=== PATIENT | female | born 1965 | race Caucasian/White ===

== ENCOUNTER 2018-10-01 00:45 | Outpatient (CLI) | payer MEDICAID, SELFPAY ==
--- NOTE | 2018-10-01 17:09 | DI.RAD_ITS ---
SYMPTOMS/DIAGNOSIS: LUMBAR RADICULOPATHY, FELL DOWN STAIRS 1 YEAR AGO, S/P SURGERY LUMBAR SPINE: AP, lateral and bilateral oblique views were obtained. Flexion and extension lateral views were also performed. There are five lumbar-type vertebral bodies. There is normal alignment. No spondylolysis or spondylolisthesis is seen. The disc heights appear well maintained. There are small endplate osteophytes seen at L3-4 and L4-L5. Mild degenerative changes at the facet joints are present at L4-5 and L5-S1. No acute fractures are present. No subluxation is seen with flexion or extension. There are surgical clips in the right upper quadrant of the abdomen. Vascular calcifications are seen of the abdominal aorta. There is a calcification seen to the left of L1, which may reflect a renal stone. IMPRESSION: Mild degenerative changes in the lumbar spine.
== END 2018-10-01 01:05 ==
PROVIDERS: PCP Family Medicine; Visit Provider Nurse Practitioner
DX: M54.16 Radiculopathy, lumbar region (principal); M54.5 Low back pain; M47.27 Other spondylosis with radiculopathy, lumbosacral region
CPT/HCPCS: 72110

== ENCOUNTER 2018-12-03 01:24 | Outpatient (CLI) | payer MEDICAID, SELFPAY ==
--- NOTE | 2018-12-03 08:55 | DI.RAD_ITS ---
SYMPTOM/DIAGNOSIS: RADICULOPATHY OF LUMBAR REGION, M54.16 LUMBAR SPINE: AP, lateral and bilateral oblique views of the lumbar spine were obtained. Comparison is made with 10/01/18. There are five lumbar type vertebral bodies. No spondylolysis or spondylolisthesis is seen. No acute fractures or subluxations are seen. Small endplate osteophytes are present at multiple levels of the lumbar spine. Vascular calcifications are seen. Surgical clips are present in the right upper quadrant of the abdomen. IMPRESSION: Stable mild degenerative changes in the lumbar spine. No acute fracture or subluxation in the lumbar spine.
== END 2018-12-03 01:44 ==
PROVIDERS: PCP Family Medicine; Visit Provider Nurse Practitioner
DX: M54.16 Radiculopathy, lumbar region (principal); M47.26 Other spondylosis with radiculopathy, lumbar region
CPT/HCPCS: 72110

== ENCOUNTER 2018-12-15 10:42 | Emergency (ER) | payer MEDICAID, SELFPAY ==
[2018-12-15] VITALS (37 sets, daily range): BP systolic 121–147; BP diastolic 55–77; PULSE 76–107; RESP 1–25; TEMP 36.8; O2SAT 90–100
--- NOTE | 2018-12-15 10:56 | ED.GENADUL_ITS ---
Discharge Plan Disposition Patient Disposition: HOME Condition: Improving Discharge Details Chief Complaint: SOB Clinical Impression: COPD with acute exacerbation Primary Care Provider: Sabi Albrecht ED Provider: Teri Navarrete Home Meds and New Rx's Prescriptions: New doxycycline hyclate 100 mg tablet 100 mg PO BID 7 Days Qty: 14 RF: 0 Continued atorvastatin 40 mg Tablet 40 mg PO DAILY RF: 0 acetaminophen 325 mg Tablet 650 mg PO Q6H PRNRF: 0 citalopram 40 mg Tablet 40 mg PO DAILY RF: 0 naltrexone 50 mg Tablet 100 mg PO DAILY RF: 0 aspirin [Aspirin Low Dose] 81 mg Tablet,Delayed Release (Dr/Ec) 81 mg PO DAILY RF: 0 amitriptyline 50 mg Tablet 25 mg PO QHS RF: 0 isosorbide mononitrate 60 mg Tablet Extended Release 24 Hr 60 mg PO DAILY RF: 0 ascorbic acid (vitamin C) [Vitamin C] 500 mg Tablet 500 mg PO DAILY RF: 0 pantoprazole 40 mg Tablet,Delayed Release (Dr/Ec) 40 mg PO DAILY RF: 0 metformin 1,000 mg Tablet 1,000 mg PO BID RF: 0 gabapentin 300 mg Capsule 300 mg PO TID RF: 0 diclofenac sodium 75 mg Tablet,Delayed Release (Dr/Ec) 75 mg PO BID RF: 0 magnesium 250 mg Tablet 250 mg PO DAILY RF: 0 lisinopril 5 mg Tablet 5 mg PO DAILY RF: 0 multivitamin with minerals Tablet 1 tab PO DAILY RF: 0 polyethylene glycol 3350 17 gram/dose Powder 17 g PO DAILY PRNRF: 0 Calcium 600 + D(3) 600 mg calcium- 200 unit Capsule 1 cap PO DAILY RF: 0 Lantus Solostar U-100 Insulin 100 unit/mL (3 mL) Insulin Pen 75 unit SUBCUT DAILY RF: 0 Eliquis 2.5 mg Tablet 2.5 mg PO BID RF: 0 Discharge Instructions Instructions: COPD (Chronic Obstructive Pulmonary Disease) (ED), Acute Cough (ED) Additional Instructions: Use the albuterol inhaler as needed and directed for shortness of breath. Take the antibiotics until finished. Call your primary care doctor tomorrow to schedule follow-up appointment for reevaluation. Return immediately to the emergency department with any worsening or new concerning symptoms. Discharge Data Discharge Physician: Teri Navarrete Medical Decision Making 53-year-old female with a history of COPD, DVT/PE, obstructive sleep apnea, hypertension, hyperlipidemia and diabetes who presents with cough with brown sputum, shortness of breath and occasional chest tightness for the past 4-5 days. Recent sick contact with pneumonia. Blood pressure mildly hypertensive, remainder vitals within normal limits. Normal respiratory rate and oxygen saturation. Patient is speaking in full sentences. Her lungs are clear to auscultation. Patient states she has an allergy to steroids which causes rash and chest tightness. She has no wheezing or rhonchi noted on exam, no indication for steroids at this time. Differential diagnosis includes acute COPD exacerbation, pneumonia, OK, PE, influenza. As she has missed a few doses of her Eliquis recently, will obtain a CT chest to r/o PE in addition to labs, and albuterol neb treatment. 1215 --labs reviewed. Normal white blood cell count, negative troponin, normal BNP. Magnesium 1.4. Glucose 248 but with normal bicarb. Influenza negative. Reassessment of lung exam after nebs notes minimal scattered rhonchi and wheezing. O2 saturation 93-95% on room air. We will give another neb treatment. Patient is complaining of worsening sore throat after neb treatment, will check a rapid strep. 1315 --strep negative. CT chest negative for PE. CT chest does note a 2 cm subcarinal adenopathy which may be reactive versus neoplasm. This was discussed with patient that she should follow-up with her primary care doctor for repeat CT as indicated. Patient states she feels much better and feels good to go home. Reassessment of lungs notes no wheezing. Oxygen saturation 97% on room air. We will send patient home with an albuterol inhaler. Unable to give patient steroids due to allergy reaction and she appears to be doing better with albuterol. As patient has a history of COPD and a previous smoker, will also give prescription for antibiotics. Will give 1 dose of doxycycline here and prescription for home. Patient is instructed to follow-up with primary care doctor for reevaluation and to return at any time if worse. Medical Records Medical records reviewed: Yes I reviewed the patient's medical records. Imaging Data Radiologic Study: Radiologist's impression: CT Angiography Chest With Contrast EXAM DATE/TIME: 12/15/2018 11:10 AM FINDINGS: Pulmonary arteries: No pulmonary embolus or aortic dissection. Aorta: Normal. No aortic aneurysm. No aortic dissection. Lungs: Normal. No consolidation. No masses. Pleural space: Normal. No pneumothorax. No pleural effusion. Heart: Normal. No cardiomegaly. No pericardial effusion. Liver: Severe fatty infiltration of the liver. Lymph nodes: Shotty superior mediastinal adenopathy which is within normal limits by CT criteria. 2.0 cm mild subcarinal adenopathy consistent with reactive adenopathy versus neoplasm. Followup according to the staff radiologist's final report. Bones/joints: Severe thoracic spondylosis. Soft tissues: Unremarkable. Other findings: Examination is limited secondary to motion artifact. IMPRESSION: 1. Severe fatty infiltration of the liver. 2. Examination is limited secondary to motion artifact. 3. No pulmonary embolus or aortic dissection. 4. 2.0 cm mild subcarinal adenopathy consistent with reactive adenopathy versus neoplasm. Followup according to the staff radiologist's final report. ECG Data Attestation: I personally reviewed and interpreted this ECG (s) as follows: Interpretation: Rate of 80, sinus, no acute ST elevation or depression. T wave inversion in lead III, V2 and V3. QTc 420. QRS 84. HPI General Mode of arrival: ambulatory . Date/Time Provider Initiated Documentation: 12/15/18 10:45 . Limitations to Documentation: no limitations . Information obtained by: patient . HPI Narrative: Pt is a 53yo F w/ a h/o COPD, DVT/PE, NARA, HTN, HLD, and Diabetes who presents to the ED w/ a c/o cough with brown sputum and shortness of breath for the past 4-5 days. States she had a recent sick contact with her father who was diagnosed with pneumonia. She admits to occasional chest tightness. She states she has been eating and drinki ng less than usual. She states she has occasionally felt hot and sweaty but denies any known fever. She denies any vomiting or diarrhea. She states she did receive a flu shot this year. She states she recently moved here from [place]. She is not on home O2. She also relates that she is recently missed a few doses of her Eliquis this week. Related Data Home Medications Medication Instructions Recorded Confirmed Calcium 600 + D(3) 1 cap PO DAILY 12/15/18 12/15/18 Eliquis 2.5 mg PO BID 12/15/18 12/15/18 Lantus Solostar U-100 Insulin 75 unit SUBCUT DAILY 12/15/18 12/15/18 acetaminophen 650 mg PO Q6H PRN 12/15/18 12/15/18 amitriptyline 25 mg PO QHS 12/15/18 12/15/18 ascorbic acid (vitamin C) [Vitamin 500 mg PO DAILY 12/15/18 12/15/18 C] aspirin [Aspirin Low Dose] 81 mg PO DAILY 12/15/18 12/15/18 atorvastatin 40 mg PO DAILY 12/15/18 12/15/18 citalopram 40 mg PO DAILY 12/15/18 12/15/18 diclofenac sodium 75 mg PO BID 12/15/18 12/15/18 doxycycline hyclate 100 mg PO BID 7 Days #14 tab 12/15/18 gabapentin 300 mg PO TID 12/15/18 12/15/18 isosorbide mononitrate 60 mg PO DAILY 12/15/18 12/15/18 lisinopril 5 mg PO DAILY 12/15/18 12/15/18 magnesium 250 mg PO DAILY 12/15/18 12/15/18 metformin 1,000 mg PO BID 12/15/18 12/15/18 multivitamin with minerals 1 tab PO DAILY 12/15/18 12/15/18 naltrexone 100 mg PO DAILY 12/15/18 12/15/18 pantoprazole 40 mg PO DAILY 12/15/18 12/15/18 polyethylene glycol 3350 17 g PO DAILY PRN 12/15/18 12/15/18 Previous Rx's Medication Instructions Recorded doxycycline hyclate 100 mg PO BID 7 Days #14 tab 12/15/18 Allergies Allergy/AdvReac Type Severity Reaction Status Date / Time pecan nut Allergy Hives Unverified 12/15/18 11:03 Penicillins Allergy Hives Unverified 12/15/18 11:03 prednisone Allergy red all Unverified 12/15/18 11:03 over sertraline AdvReac severe Unverified 12/15/18 11:03 diarrhea venlafaxine AdvReac suicidal Unverified 12/15/18 11:14 ideation Review of Systems Review of Systems All systems reviewed & are unremarkable except as noted in HPI and below Constitutional Reports as per HPI, Denies chills and Denies fever(s) Eyes Denies blurry vision ENT Denies dizziness, Denies sore throat and Denies throat swelling Cardiovascular Denies chest pain and Reports dyspnea Respiratory Reports cough and Reports dyspnea Gastrointestinal Denies abdominal pain, Denies diarrhea and Denies vomiting Genitourinary Denies hematuria and Denies dysuria Musculoskeletal Denies back pain and Denies numbness Integumentary/Breasts Denies lesions and Denies rash Neurologic Denies dizziness, Denies focal weakness and Denies numbness Allergic/Immunologic Denies throat swelling PFSH Medical History COPD (chronic obstructive pulmonary disease) (Chronic) DVT (deep venous thrombosis) (Chronic) HTN (hypertension) (Chronic) Hyperlipemia (Chronic) Obstructive sleep apnea (Chronic) Pulmonary embolism (Chronic) Surgical History H/O removal of cyst (Chronic) History of back surgery (Chronic) History of carpal tunnel release (Chronic) Hx of cholecystectomy (Chronic) Social History Smoking/Tobacco Use Status: Former Tobacco Use Quit Date: 09/24/09 Alcohol Intake: never Substance use type: does not use Do you feel safe at home: Yes Do you feel safe in your relationship?: Yes Exam Const General: cooperative and no acute distress Orientation: alert, awake and oriented x3 HENMT Head: normal to inspection Ears: hearing grossly normal bilaterally, external ears normal and TM's normal bilaterally General nose exam: external nose normal Face and sinus: normal facial exam Mouth: oral mucosae normal Teeth and gingiva: dentition normal Throat: posterior oropharynx normal Eyes General: appearance normal, both eyes and all related structures Eyelids: eyelids normal EOM: EOM intact bilaterally Neck Neck: normal visual inspection Lymphatic: no lymphadenopathy noted Chest Chest: normal inspection of the chest Resp Effort & Inspection: normal respiratory effort and able to speak in complete sentences Auscultation: clear to auscultation bilaterally Cardio Rate: regular rate Rhythm: regular rhythm GI Inspection: normal to inspection Palpation: soft, not firm, no guarding, no hepatosplenomegaly, no masses and nontender Auscultation: normal bowel sounds Skin General skin exam: no rashes or lesions noted Neuro General: alert and awake Cognition: normal cognition Speech: speech normal Gait: normal gait Motor: muscle tone normal throughout Sensory Exam: no sensory deficits noted Extrem General: normal to inspection, full ROM and no edema Psych Appearance: grossly normal Mental Status: mental status grossly normal Speech and Movement: speech and movement normal Affect: normal affect Thought Process: normal
--- NOTE | 2018-12-15 11:08 | DI.CT_ITS ---
SYMPTOMS/DIAGNOSIS: SOB, COUGH, H/O PE, ? PE CHEST CT FOR PULMONARY EMBOLISM: CT angiography was performed with multi slice acquisition and multi planar and 3D reconstruction. There are no prior comparison exams. There is no evidence of pulmonary emboli or aortic dissection. The heart size appears normal. No pleural or pericardial effusions or infiltrates are seen. A subcarinal lymph node is seen measuring 2 cm. No pulmonary nodules are identified. There are mild underlying emphysematous changes. There is a small hiatal hernia. There is fatty infiltration of the liver. The spleen is normal in size. The adrenals appear normal. A nodule is seen at the lower pole of the left lobe of the thyroid. Prominent osteophytes are seen in the thoracic spine. IMPRESSION: 1. 2 cm subcarinal lymph node could be reactive, however, malignancy can not be excluded. 2. Nodule at the lower pole of the left lobe of the thyroid. Ultrasound could be performed for further evaluation.
[2018-12-15] MEDS: Normal Saline 250 ML IV (11:25)
[2018-12-15] MEDS: Albuterol/Ipratropium 3 ML UPD VIAL UPD (11:30)
[2018-12-15 11:33] LABS: Abs Immature Grans 0.01 k/cumm (0.0-0.09); Absolute Basophil Count 0.05 k/cumm (0.0-0.2); Absolute Eosinophil Count 0.24 k/cumm (0.0-0.7); Absolute Lymphocyte Count 2.28 k/cumm (1.2-3.4); Absolute Monocyte Count 0.91 k/cumm (0.11-0.7); Absolute Neutrophil Count 3.71 k/cumm (1.2-6.7); Basophils % 0.7; Eosinophils % 3.3; HCT 38.8 % (36.0-46.0); HGB 13.3 g/dL (12.0-15.5); Immature Grans % 0.1; Lymphocytes % 31.7; Mean Corp. HGB Concentration 34.3 g/dL (32.0-36.0); Mean Corpuscular Hemoglobin 30.9 pg (27.0-33.0); Mean Platelet Volume 11.9 fL (8.0-11.0); Monocytes % 12.6; Neutrophils % 51.6; Platelet Count 226 x1000/uL (130-400); RBC 4.31 m/cumm (4.00-5.20); RBC Distribution Width 12.6 % (11.7-14.6)
[2018-12-15 11:52] LABS: ALT 73 U/L (12-78); AST 42 U/L (15-37); Albumin 3.8 g/dL (3.4-5.0); Alkaline Phosphatase 93 U/L (46-116); Anion Gap 13.2 mmol/L (3-11); BUN 12 mg/dL (7-18); Bilirubin, Total 0.4 mg/dL (0.2-1.0); CO2 26.8 mmol/L (21.0-32.0); CREATININE 0.81 mg/dL (0.55-1.02); Calcium 9.1 mg/dL (8.5-10.1); Chloride 100 mmol/L (98-107); Glucose 248 mg/dL (70-100); Magnesium 1.4 mg/dL (1.8-2.4); NT-proBNP 21 pg/mL; Potassium 3.9 mmol/L (3.5-5.1); Sodium 140 mmol/L (136-145); Total Protein 7.4 g/dL (6.4-8.2); Troponin I < 0.02 ng/mL (0.00-0.06)
[2018-12-15] MEDS: Omnipaque 350 MG/ML 100 ML BTL IJ (12:09)
[2018-12-15] MEDS: Albuterol 2.5 MG/3 ML INH SOLN VIAL UPD (12:24)
--- NOTE | 2018-12-15 12:57 | DI.VRAD_ITS ---
EXAM: CT Angiography Chest With Contrast EXAM DATE/TIME: 12/15/2018 11:10 AM CLINICAL HISTORY: 53 years old, female; Pain; Other: Back pain, cough TECHNIQUE: Imaging protocol: Axial computed tomographic angiography images of the chest with intravenous contrast using CT angiography protocol. Coronal and sagittal reformatted images were created and reviewed. 3D rendering: MIP reconstructed images were created and reviewed. Radiation optimization: All CT scans at this facility use at least one of these dose optimization techniques: automated exposure control; mA and/or kV adjustment per patient size (includes targeted exams where dose is matched to clinical indication); or iterative reconstruction. COMPARISON: No relevant prior studies available. FINDINGS: Pulmonary arteries: No pulmonary embolus or aortic dissection. Aorta: Normal. No aortic aneurysm. No aortic dissection. Lungs: Normal. No consolidation. No masses. Pleural space: Normal. No pneumothorax. No pleural effusion. Heart: Normal. No cardiomegaly. No pericardial effusion. Liver: Severe fatty infiltration of the liver. Lymph nodes: Shotty superior mediastinal adenopathy which is within normal limits by CT criteria. 2.0 cm mild subcarinal adenopathy consistent with reactive adenopathy versus neoplasm. Followup according to the staff radiologist's final report. Bones/joints: Severe thoracic spondylosis. Soft tissues: Unremarkable. Other findings: Examination is limited secondary to motion artifact. IMPRESSION: 1. Severe fatty infiltration of the liver. 2. Examination is limited secondary to motion artifact. 3. No pulmonary embolus or aortic dissection. 4. 2.0 cm mild subcarinal adenopathy consistent with reactive adenopathy versus neoplasm. Followup according to the staff radiologist's final report. Dictated and Authenticated by: Kenny Lara MD. Ordering:JESSIE Williamson MD
[2018-12-15] MEDS: Doxycycline Hyclate 100 MG CAP PO (13:41)
[2018-12-15] MEDS: Albuterol HFA 8 GM 60 PUFF INH IH (13:41)
[2018-12-15] MEDS: Magnesium Oxide 400 MG TAB PO (13:41)
== END 2018-12-15 13:50 | disposition home or self-care (01) ==
PROVIDERS: Emergency Provider Physician Assistant; PCP Nurse Practitioner Family
DX: J44.1 Chronic obstructive pulmonary disease with (acute) exacerbation (principal); I10 Essential (primary) hypertension; E11.9 Type 2 diabetes mellitus without complications
CPT/HCPCS: 36415; 71275; 80053; 87449; 87880; 93005; 94640; 96360; 99285; 83735; 83880; 84484; 85025; 87081; 93010; 99284; J3490; J7613; J7620

== ENCOUNTER 2019-01-14 01:39 | Outpatient (CLI) | payer MEDICAID, SELFPAY ==
--- NOTE | 2019-01-14 13:02 | DI.RAD_ITS ---
SYMPTOMS/DIAGNOSIS: CERVICALGIA, M54.2 CERVICAL SPINE: The exam was somewhat limited by patient motion. The disc spaces are well maintained. There are endplate osteophytes at C5-6 and C6-7 projecting anteriorly. No neural foraminal narrowing is visible. The left neural foramina are not well profiled. There are facet degenerative changes, greatest at C2-3 and C3-4. IMPRESSION: Mild degenerative changes.
--- NOTE | 2019-01-14 15:16 | DI.US_ITS ---
SYMPTOMS/DIAGNOSIS: THYROID NODULE, E04.1 THYROID ULTRASOUND: Comparison is made with chest CT dated November,. No dominant suspicious nodule seen. IMPRESSION: Findings consistent with a multinodular thyroid.
== END 2019-01-14 01:59 ==
PROVIDERS: PCP Nurse Practitioner Family; Visit Provider Nurse Practitioner Family
DX: E04.2 Nontoxic multinodular goiter (principal); M54.2 Cervicalgia; M47.812 Spondylosis without myelopathy or radiculopathy, cervical region
CPT/HCPCS: 72050; 76536

== ENCOUNTER 2019-02-06 16:24 | Outpatient (REF) | payer MEDICAID, SELFPAY ==
[2019-02-06 19:10] LABS: HCT 41.8 % (36.0-46.0); HGB 13.9 g/dL (12.0-15.5); Mean Corp. HGB Concentration 33.3 g/dL (32.0-36.0); Mean Corpuscular Hemoglobin 29.9 pg (27.0-33.0); Mean Corpuscular Volume 89.9 fL (80-95); Mean Platelet Volume 12.2 fL (8.0-11.0); Platelet Count 302 x1000/uL (130-400); RBC 4.65 m/cumm (4.00-5.20); RBC Distribution Width 12.8 % (11.7-14.6); White Blood Cell Count 11.88 k/cumm (4.4-10.8)
[2019-02-06 19:16] LABS: C-Reactive Protein 0.35 mg/dL (0.0-0.3); TSH (W/Ref FT4) 2.18 uIU/mL (0.358-3.74)
[2019-02-06 20:19] LABS: ESR 11 MM/HR (0-30)
[2019-02-10 10:04] LABS: Rheumatoid Factor <8 IU/mL (<12.5)
== END 2019-02-06 16:44 ==
LOC: NCHCN 16:24
PROVIDERS: PCP Nurse Practitioner Family; Visit Provider Nurse Practitioner Family
DX: E04.1 Nontoxic single thyroid nodule (principal); R50.9 Fever, unspecified
CPT/HCPCS: 85027; 85652; 84443; 86140; 86431

== ENCOUNTER 2019-07-07 12:54 | Outpatient (REF) | payer MEDICAID, SELFPAY ==
[2019-07-07 14:41] LABS: Hemoglobin A1C 6.6 % (4.5-6.2)
[2019-07-07 15:11] LABS: Anion Gap 11.4 mmol/L (3-11); BUN 12 mg/dL (7-18); CO2 29.6 mmol/L (21.0-32.0); CREATININE 0.99 mg/dL (0.55-1.02); Calcium 9.5 mg/dL (8.5-10.1); Calculated LDL 67 mg/dL; Chloride 104 mmol/L (98-107); Cholesterol 142 mg/dL (50-200); Estimated GFR 58.45 (mL/min/1.73m2); Glucose 102 mg/dL (70-100); HDL Cholesterol 48 mg/dL (40-60); Potassium 4.7 mmol/L (3.5-5.1); Sodium 145 mmol/L (136-145); TSH 1.82 uIU/mL (0.36-3.74); Triglyceride 135 mg/dL (30-150)
== END 2019-07-07 13:14 ==
LOC: NCHCN 12:54
PROVIDERS: PCP Nurse Practitioner Family; Visit Provider Nurse Practitioner Family
DX: E11.9 Type 2 diabetes mellitus without complications (principal); E78.5 Hyperlipidemia, unspecified; E04.1 Nontoxic single thyroid nodule; G43.019 Migraine without aura, intractable, without status migrainosus
CPT/HCPCS: 80048; 80061; 83036; 84443

== ENCOUNTER 2019-11-27 18:36 | Outpatient (REF) | payer MEDICAID, SELFPAY | END 2019-11-27 18:56 | LOC: NCHCN 18:36 | PROVIDERS: PCP Nurse Practitioner Family; Visit Provider Nurse Practitioner Psychiatric/Mental Health | DX: R32 Unspecified urinary incontinence (principal) | CPT/HCPCS: 87086 ==

== ENCOUNTER 2019-12-04 00:54 | Outpatient (CLI) | payer MEDICAID, SELFPAY ==
--- NOTE | 2019-12-04 13:58 | DI.MAMMO_ITS ---
EXAM: MG MAMMO SCREENING 60 MIN DUR CLINICAL HISTORY: SCREENING, Z12.39 TECHNIQUE: Mammograms were interpreted according to the usual protocol including computer analysis w [employer] CAD system, tomosynthesis and C-view imaging. COMPARISON: No significant interval change in appearance in comparison with previous examination of February 2018. FINDINGS: The breasts are of moderate density with fairly symmetrical distribution of fibroglandular tissue. T here are multiple well-circumscribed areas of nodularity seen in both breasts, no significant interva l change in appearance in comparison with previous examination of February 2018. No new dominant mass or clumped microcalcification seen. IMPRESSION: No specific evidence of malignancy at this time. Routine screening examinations are suggested at year ly intervals in this age group, and specifically follow-up mammogram is requested in 12 months to fol low multiple areas of apparently stable nodularity, the largest measuring about 15 millimeters in melodie meter in the right breast. Category 2, breast density category B.
== END 2019-12-04 01:14 ==
PROVIDERS: PCP Nurse Practitioner Family; Visit Provider Nurse Practitioner Family
DX: Z12.31 Encounter for screening mammogram for malignant neoplasm of breast (principal); N60.81 Other benign mammary dysplasias of right breast
CPT/HCPCS: 77063; 77067

== ENCOUNTER 2020-08-20 02:45 | Outpatient (CLI) | payer MEDICARE, MEDICAID, SELFPAY ==
--- NOTE | 2020-08-20 09:48 | DI.RAD_ITS ---
EXAM: XR LUMBAR SPINE COMPLETE CLINICAL HISTORY: RADICULOPATHY LUMBAR REGION, M54.16, PREOP TECHNIQUE: COMPARISON: No exams were available for comparison FINDINGS: Seven views were obtained including flexion and extension lateral views. There are vascular clips in the right upper quadrant consistent with prior cholecystectomy. There is a slight left convex lumbar scoliosis. There is moderate narrowing of the intervertebral di sc space at L5-S1 consistent with disc degeneration. Mild hypertrophic endplate and facet spurring n oted in the lower lumbar region. No evidence of spondylolysis or spondylolisthesis. Mild degenerati ve changes of the SI joints and hips noted bilaterally. Flexion and extension lateral views are unremarkable. IMPRESSION: Degenerative changes as described above. RADIATION DOSE DELIVERED: Total DLP
--- NOTE | 2020-08-20 09:49 | DI.RAD_ITS ---
EXAM: XR CHEST 2V PA LATERAL CLINICAL HISTORY: PRE OP, LUMBAR RADICULOPATHY, M54.16 TECHNIQUE: COMPARISON: CT CT CHEST PE CTA from 12/15/2018 FINDINGS: Note is made of a sclerotic lesion the proximal metaphysis left humerus which appears to have been pr esent on prior CT, appearance consistent with enchondroma. Heart is not enlarged. Lungs are grossly clear and well expanded. No pleural effusion seen. IMPRESSION: No evidence of acute disease. RADIATION DOSE DELIVERED: Total DLP
== END 2020-08-20 03:05 ==
PROVIDERS: PCP Nurse Practitioner Family; Visit Provider Neurological Surgery
DX: M47.27 Other spondylosis with radiculopathy, lumbosacral region (principal); Z01.818 Encounter for other preprocedural examination; M16.0 Bilateral primary osteoarthritis of hip
CPT/HCPCS: 71046; 72110

== ENCOUNTER 2020-12-23 19:37 | Inpatient (IN) | payer MEDICARE, MEDICAID, SELFPAY ==
[2020-12-23] VITALS (9 sets, daily range): BP systolic 96–120; BP diastolic 54; PULSE 91–93; RESP 18; TEMP 36.2; O2SAT 93–97
--- NOTE | 2020-12-23 19:46 | ED.GENADUL_ITS ---
Discharge Plan Disposition Patient Disposition: [facility] INPATIENT Condition: Stable Discharge Details Clinical Impression: Intractable back pain, Left lumbar radiculopathy Admit Date/Time: 12/23/20 23:30 Admit Provider: Justen Mendez Attending Provider: Justen Mendez Primary Care Provider: Sabi Albrecht ED Provider: Milagros Hui Discharge Data Discharge Date/Time-TO BE ENTERED AT DEPARTURE: 12/24/20 00:33 Medical Decision Making 55-year-old female presents to the ED via EMS with chief complaint of lower lumbar pain with radiation down her left gluteal into her left thigh. This began this afternoon. She reports recent lumbar surgery at [facility] on November 11. She states that she had 6 miguel removed this afternoon and shortly thereafter the pain began. She denies any falls or any thing that would exacerbate her her pain. She reports some numbness tingling to her right lower extremity which has been present since the surgery. She reports urinary incontinence which she states is at her baseline and constipation which she has had prior to the surgery. She was given 100 mcg of fentanyl IV prior to arrival which brought her pain from a 10 down to a 5. She does have a past medical history of COPD, DVT, hypertension, hyperlipidemia, obstructive sleep apnea, PE, carpal tunnel release and rods placed in her lumbar spine. At this time hydromorphone 0.5 mg IV ordered for pain control. X-ray of lumbar spine ordered. CT originally ordered but canceled due to possible artifact caused from hardware and continuity of care from previous imaging from [facility] including x-rays. Upon further questioning patient patient states that she fell 2 days ago while putting away some close. She states that her right leg has been giving out and she landed on her knees. She denies any head trauma or falling onto her back. She does use a walker at home. 2042: Patient appears much more comfortable after Dilaudid. She is still complaining of some radiating pain into her left lower extremity. She took cyclobenzaprine proximately 6 hours ago ordered 10 mg of cyclobenzaprine. X-ray lumbar spine is pending at this time. Imaging protocol: XR of the lumbosacral spine. Views: 4 or 5 views. COMPARISON: CR XR LUMBAR SPINE COMPLETE 08/20/2020 9:33 AM FINDINGS: Bones/joints: Five lumbar type vertebral bodies. Interval lumbar spine fusion involving L4, L5, and S1. Interbody spacing devices at L4-L5 and L5-S1, placed in line with the pedicles at L4-L5 and completely between the vertebral bodies at L5-S1. Fixation hardware is intact. No acute fracture. Soft tissues: Unremarkable. Intraperitoneal space: Prior cholecystectomy. IMPRESSION: 1. No acute fracture. 2. Interval L4 through S1 spinal fusion. Thank you for allowing us to participate in the care of your patient. 2228: Will road challenge the patient with a walker. Will discuss results with patient. At this time plan is for discharge patient home. 2300: Patient attempted with road challenge. She was walking with a walker. She has some increased pain with ambulation into her left buttock and left lower extremity. Patient does take oxycodone and Flexeril at home for pain. She has received a total of 1 mg of hydromorphone here in department. Will contact hospitalist regarding possible admission for intractable pain status post back surgery. 2329: Spoke with Dr. Mendez regarding patient and recommendation for admission for intractable pain, pain control and physical therapy he agrees to accept patient for admission at this time. Discussed plan of care with patient who verbalizes understanding and is in agreement with the admission plan. Initial ED admission orders placed. Medical Records Medical records reviewed: Yes I reviewed the patient's medical records. Medical records narrative: A telephone call from December 16, 2020 was reviewed from [facility]'s record and it is reported that she has fallen approximately 4 times since discharge from the hospital. She reported at that time sharp pain radiating from her low back into her legs bilaterally and that the right is worse than the left. She reported that 3 of the 4 fall she been using her walker. According to medical record review she has not had any imaging in the last 2 weeks since being discharged from [facility]. HPI General Mode of arrival: EMS . Date/Time Provider Initiated Documentation: 12/23/20 20:03 . Limitations to Documentation: no limitations . Information obtained by: patient and EMS . HPI Narrative: 55-year-old female presents to the ED via EMS with chief complaint of lower lumbar pain with radiation down her left gluteal into her left thigh. This began this afternoon. She reports recent lumbar surgery at [facility] on November 11. She states that she had 6 miguel removed this afternoon and shortly thereafter the pain began. She denies any falls or any thing that would exacerbate her her pain. She reports some numbness tingling to her right lower extremity which has been present since the surgery. She reports urinary incontinence which she states is at her baseline and constipation which she has had prior to the surgery. She was given 100 mcg of fentanyl IV prior to arrival which brought her pain from a 10 down to a 5. She does have a past medical history of COPD, DVT, hypertension, hyperlipidemia, obstructive sleep apnea, PE, carpal tunnel release and rods placed in her lumbar spine. Related Data Home Medications Medication Instructions Recorded Confirmed Calcium 600 + D(3) 1 cap PO DAILY 12/15/18 12/15/18 Eliquis 2.5 mg PO BID 12/15/18 12/23/20 Lantus Solostar U-100 Insulin 75 unit SUBCUT DAILY 12/15/18 12/23/20 acetaminophen 650 mg PO Q6H PRN 12/15/18 12/23/20 ascorbic acid (vitamin C) [Vitamin 500 mg PO DAILY 12/15/18 12/23/20 C] aspirin [Aspirin Low Dose] 81 mg PO DAILY 12/15/18 12/23/20 atorvastatin 40 mg PO DAILY 12/15/18 12/23/20 citalopram 40 mg PO DAILY 12/15/18 12/23/20 diclofenac sodium 75 mg PO BID 12/15/18 12/23/20 gabapentin 400 mg PO TID 12/15/18 12/23/20 isosorbide mononitrate 60 mg PO DAILY 12/15/18 12/23/20 lisinopril 5 mg PO DAILY 12/15/18 12/23/20 magnesium 250 mg PO DAILY 12/15/18 12/23/20 metformin 1,000 mg PO BID 12/15/18 12/23/20 multivitamin with minerals 1 tab PO DAILY 12/15/18 12/23/20 naltrexone 100 mg PO DAILY 12/15/18 12/15/18 pantoprazole 40 mg PO DAILY 12/15/18 12/23/20 polyethylene glycol 3350 17 g PO DAILY PRN 12/15/18 12/23/20 baclofen 10 mg PO TID 12/23/20 12/23/20 bupropion HCl 300 mg PO QAM 12/23/20 12/23/20 cyclobenzaprine 10 mg PO PRN PRN 12/23/20 12/23/20 empagliflozin [Jardiance] 25 mg PO DAILY 12/23/20 12/23/20 prazosin 2 mg PO HS 12/23/20 12/23/20 tramadol 50 mg PO PRN PRN 12/23/20 12/23/20 Allergies Allergy/AdvReac Type Severity Reaction Status Date / Time pecan nut Allergy Hives Unverified 12/23/20 19:44 Penicillins Allergy Hives Unverified 12/23/20 19:44 prednisone Allergy red all Unverified 12/23/20 19:44 over sertraline AdvReac severe Unverified 12/23/20 19:44 diarrhea venlafaxine AdvReac suicidal Unverified 12/23/20 19:44 ideation General Stated Complaint: Nk/Back Pain HANNAH: 3 Review of Systems All systems reviewed & are unremarkable except as noted in HPI and below Constitutional Constitutional: Reports as per HPI and Denies fever(s) Cardiovascular Cardiovascular: Reports system reviewed and no additional complaints, except as documented Respiratory Respiratory: Reports system reviewed and no additional complaints, except as documented Gastrointestinal Gastrointestinal: Reports constipation Genitourinary Genitourinary: Denies difficulty voiding and Reports urinary incontinence (Patient reports this was in place prior to surgery) Musculoskeletal Musculoskeletal: Reports as per HPI, Reports back pain, Denies limited range of motion, Denies loss of height, Reports muscle weakness (Left lower extremity.), Reports numbness (From right knee down to right foot) and Reports radiating pain into limb (Left buttock and thigh) Neurologic Neurologic: Reports numbness (From right knee down to right foot) [facility] Medical History (Updated 12/24/20 @ 11:18 by Yash Jason) BMI 35.0-35.9,adult COPD (chronic obstructive pulmonary disease) Diabetes mellitus DVT (deep venous thrombosis) HTN (hypertension) Hyperlipemia Obstructive sleep apnea Pulmonary embolism Surgical History (Updated 12/24/20 @ 11:18 by Yash Jason) H/O removal of cyst History of back surgery History of carpal tunnel release Hx of cholecystectomy Hx of decompressive lumbar laminectomy Social History Smoking/Tobacco Use Status: Former Tobacco Use Quit Date: 01/01/10 Smoking risk assessment performed?: Yes Alcohol Intake: never Substance use type: does not use Do you feel safe at home: Yes Do you feel safe in your relationship?: Yes Exam Narrative Exam Narrative: Constitutional: Alert and oriented x3. Appears stated age. Normal body habitus. Head: Normocephalic, no trauma. Eyes: Pupils PERRLA, Red reflex noted, EOM's intact. Eyelids symmetrical without lesions, discharge, or swelling. ENT: Bilateral TM's WNL, External ear normal to inspection, no mastoid TTP, swelling, or erythema, Nasal turbinates WNL, no nasal discharge. Normal dentition, Posterior pharynx WNL, no exudate. Chest: RRR, Normal S1, S2, distal pulses intact. Resp: Lungs clear to auscultation bilaterally, no wheezes, rales, or rhonchi. Musculoskeletal: Has some slapping of the left foot with gait walking with walker. No signs of trauma to her lower extremities. Skin: Surgical scar noted see below. Capillary refill less than 2 sec. Neurologic: Cranial nerves II-XII intact. Alert and oriented x 3. Left lower extremity dorsiflexion is decreased compared to the right. Sensation is decreased to the right lower extremity. Hematologic/Lymphatic: No ecchymosis, no lymphadenopathy. Const General: cooperative, healthy appearing and well developed Nutritional Appearance: well nourished Orientation: alert, awake and oriented x3 Back/Spine/Pelvis Back: erythema (No surrounding area of induration), No warmth, back tenderness and other (Surgical scar noted vertical midline mild surrounding erythema Steri- Strips) Thoracic/Lumbar Spine: surgical scar(s) present and lumbar spinal tenderness Pelvis: no pain with anterior-posterior compression Sacroiliac joints: on the left (Radiculopathy radiating into the left thigh) Coccyx: no swelling and no tenderness Course Vital Signs Vital signs: Vital Signs Temperature 36.2 C L 12/23/20 19:39 Pulse 93 H 12/23/20 19:39 Respiratory Rate 18 12/23/20 19:39 Blood Pressure 120/54 L 12/23/20 19:39 Pulse Oximetry 97 12/23/20 19:39 Temperature 36.2 C L 12/23/20 19:39 Temperature Source Skin 12/23/20 19:39 Pulse 93 H 12/23/20 19:39 Respiratory Rate 18 04/01/21 19:39 Blood Pressure 120/54 L 12/23/20 19:39 Pulse Oximetry 97 12/23/20 19:39 Pain Level 10 12/23/20 19:39
[2020-12-23] MEDS: Normal Saline 1,000 ML 125 ML IV (20:07)
[2020-12-23] MEDS: HYDROmorphone 2 MG/ML VIAL 0.5 MG IVP ×2 (20:07→21:58)
[2020-12-23] MEDS: Cyclobenzaprine 10 MG TAB PO (21:03)
--- NOTE | 2020-12-23 21:30 | DI.RAD_ITS ---
EXAM: XR LUMBAR SPINE COMPLETE CLINICAL HISTORY: Hx of lumbar surgery 2 weeks ago, Fall, R/O new Fx TECHNIQUE: COMPARISON: CT CT CHEST PE CTA from 12/15/2018 CR XR LUMBAR SPINE COMPLETE from 08/20/2020 FINDINGS: Five views were obtained. Note is made of Sterling rods in place from L4 through S1. There also a ppear to be vertebral disc prostheses at L4-5 and L5-S1. The L4-5 prosthesis appears to be displaced posteriorly. This could lie in the spinal canal, additional evaluation with CT recommended for furt her evaluation. Please correlate clinically. Results were called to ED. IMPRESSION: RADIATION DOSE DELIVERED: Total DLP
--- NOTE | 2020-12-23 21:48 | DI.VRAD_ITS ---
PROCEDURE INFORMATION: Exam: XR Lumbosacral Spine Exam date and time: 12/23/2020 9:29 PM Age: 55 years old Clinical indication: Injury or trauma; Fall; Blunt trauma (contusions or hematomas) TECHNIQUE: Imaging protocol: XR of the lumbosacral spine. Views: 4 or 5 views. COMPARISON: CR XR LUMBAR SPINE COMPLETE 08/20/2020 9:33 AM FINDINGS: Bones/joints: Five lumbar type vertebral bodies. Interval lumbar spine fusion involving L4, L5, and S1. Interbody spacing devices at L4-L5 and L5-S1, placed in line with the pedicles at L4-L5 and completely between the vertebral bodies at L5-S1. Fixation hardware is intact. No acute fracture. Soft tissues: Unremarkable. Intraperitoneal space: Prior cholecystectomy. IMPRESSION: 1. No acute fracture. 2. Interval L4 through S1 spinal fusion. Dictated and Authenticated by: Lj Lang MD. Ordering:SOFYA Linares MD
[2020-12-24 00:18] LABS: Source Nasal/Nares
[2020-12-24] MEDS: HYDROmorphone 2 MG/ML VIAL 0.5 MG IVP (00:29)
[2020-12-24 00:36] LABS: Abs Immature Grans 0.04 10^3/uL (0.0-0.06); Absolute Basophil Count 0.09 10^3/uL (0.0-0.2); Absolute Lymphocyte Count 4.36 10^3/uL (1.2-3.4); Absolute Monocyte Count 0.87 10^3/uL (0.1-0.8); Basophils % 0.7; Eosinophils % 2.5; HCT 34.4 % (36.0-46.0); HGB 10.9 g/dL (11.2-15.7); Immature Grans % 0.3; Lymphocytes % 33.6; MCH 29.4 pg (27.0-33.0); MCHC 31.7 % (32.0-36.0); MCV 92.7 fL (80-95); MPV 10.7 fL (8.0-11.0); Monocytes % 6.7; Neutrophils % 56.2; Nucleated RBC 0 %; Platelet Count 391 10^3/uL (130-400); RBC 3.71 10^6/uL (3.93-5.22); RDW 13.2 % (11.7-14.6); RDW-SD 44.7 fL; WBC 12.99 10^3/uL (4.4-10.8)
[2020-12-24 00:37] LABS: Absolute Eosinophil Count 0.32 10^3/uL (0.0-0.7)
[2020-12-24 00:50] LABS: ALT 27 U/L (14-59); AST 12 U/L (15-37); Albumin 3.2 g/dL (3.4-5.0); Alkaline Phosphatase 115 U/L (46-116); Anion Gap 8.5 mmol/L (3-11); BUN 15 mg/dL (7-18); Bilirubin, Total 0.2 mg/dL (0.2-1.0); CO2 29.5 mmol/L (21.0-32.0); Chloride 104 mmol/L (98-107); Estimated GFR 57.56 (mL/min/1.73m2); Glucose 128 mg/dL (74-106); Sodium 142 mmol/L (136-145); Total Protein 6.7 g/dL (6.4-8.2)
[2020-12-24 00:54] VITALS: BP 109/66; PULSE 76; RESP 19; TEMP 36.3; O2SAT 96
[2020-12-24 01:25] VITALS: BP 109/66; PULSE 76; RESP 19; TEMP 36.3; O2SAT 96
[2020-12-24] MEDS: MORPHine 2 MG/ML SYR IVP ×4 (01:58→11:08)
[2020-12-24] MEDS: Normal Saline Flush 10 ML SYR IVP ×4 (01:59→11:08)
[2020-12-24 02:45] LABS: Bilirubin Negative (Negative); Blood Negative (Negative); Clarity Sl Cloudy (Clear); Glucose 500 mg/dL (Negative); Ketones Negative (Negative); Leukocyte Esterase Negative (Negative); Nitrite Positive (Negative); Urobilinogen 0.2 EU/dL (Up TO 0.2)
[2020-12-24 02:54] LABS: Bacteria Many HPF (Negative); C & S Indicated? Yes; Casts Negative LPF (Negative); Crystals Negative HPF (Negative); Epithelial Cells Few HPF (Negative); Mucus Negative (Negative); RBC 0-2 HPF (0-2)
--- NOTE | 2020-12-24 07:01 | HPE_ITS ---
Date of service: 12/24/20 Time of Service: 06:09 Assessment and Plan Assessment and plan (1) Intractable back pain: Status: Acute Assessment and plan: She is 2 weeks s/p L4-S1 laminectomy/pediculectomy and fusion procedure at [facility] for spinal stenosis with acutely worsening pain. Ideally she would have been admitted at [facility], but we will try to manage her conservatively with pain control and PT. Repeat MRI is indicated, but she requires full sedation to tolerate. Should touch base with neurosurgery also to make sure hardward MRI compatable and to help guide workup. I continued her outpatient pain medication including muscle relaxors. She also has diclofenac as an outpatient, which is not ideal with eliquis use and ASCVD on her PMH noted in clinic record, so I am holding this. Hydromorphone prn while inpatient. (2) History of pulmonary embolus (PE): Status: Acute Assessment and plan: On prophylactic apixaban chronically, continue. (3) COPD (chronic obstructive pulmonary disease): Status: Chronic Assessment and plan: Mild clinically, not active currently. Monitor. (4) Diabetes mellitus: Status: Chronic Assessment and plan: Well controlled on last A1c at 7.1% but this was March 2020. Will continue basal insulin and metformin and jardiance as per outp [facility]. SSI prn. Repeat A1c. (5) BMI 35.0-35.9,adult: Status: Acute Assessment and plan: she is on buproprion and naltrexone, presumably for weight loss. She also has cormorbied depression. Will continue the buproprion and SSRI, but stop naltrexone as we are treating pain with opioids. (6) Discharge planning issues: Status: Acute Assessment and plan: If she is able to mobilize with PT, can discharge with oral pain meds and f/u at [facility] neurosurgery. Otherwise she may need transfer. Currently stable on medical floor. History of Present Illness History of Present Illness Chief Complaint: back pain Narrative: 55 yo female with history of lumbar surgery at [facility] on December 09 who presented some worsening of her low back pain radiating to left leg. Patient states she was recovering well from her surgery until December 23, when the visiting nurse came and removed her miguel. Almost immediately after staple removal, she had increased sharp pain in her lower back. This pain continued, and when she tried to sit to urinate, the pain became unbearable and radiated down her left leg. She had no fall or other injury to trigger this, though she has had a couple non-traumatic falls most recently 2 days ago when she fell to her kneees after feeling her legs gave out. Since then she has been in severe pain and been unable to put pressure on her left side as it makes the pain worse. She has not been able to get up on her own and use the bathroom since the afternoon of the episode. She gets some urine incontinence and constipation, but this is her baseline, no clear change for her. This pain is different than what she had prior to her surgery. In the ED, pain treated with hydromorphone with moderate reduction in pain. Patient was not able to walk with walker in the ED so admission requested. Review of Systems Constitutional Constitutional: Denies anorexia, Denies chills, Denies fever(s), Denies headache(s) and Denies weakness Eyes Eyes: Denies change in vision and Denies irritation ENT Ears, Nose, Mouth, and Throat: Denies dizziness, Denies headache(s), Denies nasal congestion, Denies nasal discharge and Denies sore throat Cardiovascular Cardiovascular: Denies chest pain, Denies palpitations, Denies dyspnea and Denies orthopnea Respiratory Respiratory: Denies cough, Denies excessive phlegm production, Denies dyspnea and Denies wheezing Comments: no change in baseline COPD symptoms Gastrointestinal Gastrointestinal: Denies abdominal pain, Reports dyspepsia, Denies fecal incontinence, Denies diarrhea, Denies nausea and Denies vomiting Genitourinary Genitourinary: Denies hematuria, Denies dysuria, Reports urinary incontinence and Reports urinary hesitancy Musculoskeletal Musculoskeletal: Denies joint swelling and Denies numbness Integumentary/Breasts Skin/Breast: Denies non-healing lesions, Denies rash and Denies skin ulcer Neurologic Neurologic: Denies dizziness, Denies headache(s), Denies numbness, Denies sensory deficit and Denies weakness Psychiatric Psychiatric: Denies mood swings and Denies panic attacks Endocrine Endocrine: Denies palpitations Hematologic/Lymphatic Hematologic/Lymphatic: Denies easy bleeding Allergic/Immunologic Allergic/Immunologic: Denies wheezing [facility] Medical History (Updated 12/24/20 @ 08:12 by Justen Mendez) BMI 35.0-35.9,adult COPD (chronic obstructive pulmonary disease) Diabetes mellitus DVT (deep venous thrombosis) HTN (hypertension) Hyperlipemia Obstructive sleep apnea Pulmonary embolism Surgical History H/O removal of cyst History of back surgery History of carpal tunnel release Hx of cholecystectomy Social History Smoking/Tobacco Use Status: Former Tobacco Use Quit Date: 09/24/09 Smoking risk assessment performed?: Yes Alcohol Intake: never Substance use type: does not use Do you feel safe at home: Yes Do you feel safe in your relationship?: Yes Meds Home Medications and Allergies Allergies Allergy/AdvReac Type Severity Reaction Status Date / Time pecan nut Allergy Hives Unverified 12/23/20 19:44 Penicillins Allergy Hives Unverified 12/23/20 19:44 prednisone Allergy red all Unverified 12/23/20 19:44 over sertraline AdvReac severe Unverified 12/23/20 19:44 diarrhea venlafaxine AdvReac suicidal Unverified 12/23/20 19:44 ideation Home Medications Medication Instructions Recorded Confirmed Type Calcium 600 + D(3) 1 cap PO DAILY 12/15/18 12/15/18 History Eliquis 2.5 mg PO BID 12/15/18 12/23/20 History Lantus Solostar U-100 Insulin 75 unit SUBCUT DAILY 12/15/18 12/23/20 History acetaminophen 650 mg PO Q6H PRN 12/15/18 12/23/20 History ascorbic acid (vitamin C) [Vitamin 500 mg PO DAILY 12/15/18 12/23/20 History C] aspirin [Aspirin Low Dose] 81 mg PO DAILY 12/15/18 12/23/20 History atorvastatin 40 mg PO DAILY 12/15/18 12/23/20 History citalopram 40 mg PO DAILY 12/15/18 12/23/20 History diclofenac sodium 75 mg PO BID 12/15/18 12/23/20 History gabapentin 400 mg PO TID 12/15/18 12/23/20 History isosorbide mononitrate 60 mg PO DAILY 12/15/18 12/23/20 History lisinopril 5 mg PO DAILY 12/15/18 12/23/20 History magnesium 250 mg PO DAILY 12/15/18 12/23/20 History metformin 1,000 mg PO BID 12/15/18 12/23/20 History multivitamin with minerals 1 tab PO DAILY 12/15/18 12/23/20 History naltrexone 100 mg PO DAILY 12/15/18 12/15/18 History pantoprazole 40 mg PO DAILY 12/15/18 12/23/20 History polyethylene glycol 3350 17 g PO DAILY PRN 12/15/18 12/23/20 History baclofen 10 mg PO TID 12/23/20 12/23/20 History bupropion HCl 300 mg PO QAM 12/23/20 12/23/20 History cyclobenzaprine 10 mg PO PRN PRN 12/23/20 12/23/20 History empagliflozin [Jardiance] 25 mg PO DAILY 12/23/20 12/23/20 History prazosin 2 mg PO HS 12/23/20 12/23/20 History tramadol 50 mg PO PRN PRN 12/23/20 12/23/20 History Exam Narrative Exam Narrative: GEN: Alert and oriented x 3, pleasent and cooperative, gives linear history. Moderate distress with any movement. HEENT: Head atraumatic. Conjunctiva clear, no icterus. PEERL, EOMI. no rhinorrhea. MMM, OP benign. Neck is supple with no masses, moving neck normally. LUNGS: CTAB with normal effort CV: RRR with no murmurs, gallops, or rubs. ABD: +BS, soft, NT/ND EXT: no cyanosis, clubbing, or edema MSK: No joint redness or swelling. lower legs not tender. She is a little tender along the greater trochanter on left, but tender to palpation on buttocks and down leg as well so not focal. NEURO: CN 2-12 grossly intact. moving 4 extremities including left leg. N ormal speech and coordination SKIN: No rashs or open wounds. Skin around back wound not tender, no discharge. Wound intact, steri strips in place PSYCH: normal mood and affect Results Imaging Chest x-ray: report reviewed Additional studies: Imaging protocol: XR of the lumbosacral spine. Views: 4 or 5 views. COMPARISON: CR XR LUMBAR SPINE COMPLETE 08/20/2020 9:33 AM FINDINGS: Bones/joints: Five lumbar type vertebral bodies. Interval lumbar spine fusion involving L4, L5, and S1. Interbody spacing devices at L4-L5 and L5-S1, placed in line with the pedicles at L4-L5 and completely between the vertebral bodies at L5-S1. Fixation hardware is intact. No acute fracture. Soft tissues: Unremarkable. Intraperitoneal space: Prior cholecystectomy. IMPRESSION: 1. No acute fracture. 2. Interval L4 through S1 spinal fusion. Labs Result diagrams: 12/24/20 00:25 12/24/20 00:25 Labs: Laboratory Results - last 24 hr 12/24/20 12/24/20 12/24/20 00:05 00:25 00:25 WBC 12.99 H RBC 3.71 L Hgb 10.9 L Hct 34.4 L MCV 92.7 MCH 29.4 MCHC 31.7 L RDW 13.2 Plt Count 391 MPV 10.7 Immature Gran % 0.3 Neutrophils % 56.2 Lymphocytes % 33.6 Monocytes % 6.7 Eosinophils % 2.5 Basophils % 0.7 Nucleated RBC % 0 Absolute Neutrophils 7.30 H Absolute Lymphocytes 4.36 H Absolute Monocytes 0.87 H Absolute Eosinophils 0.32 Absolute Basophils 0.09 Sodium 142 Potassium 4.0 Chloride 104 Carbon Dioxide 29.5 Anion Gap 8.5 BUN 15 Creatinine 1.0 Estimated GFR/1.73 m2 57.56 Glucose 128 H Calcium 9.0 Total Bilirubin 0.2 AST 12 L ALT 27 Alkaline Phosphatase 115 Total Protein 6.7 Albumin 3.2 L Urine Color Urine Clarity Urine pH Ur Specific [place] Urine Protein Urine Ketones Urine Blood Urine Nitrite Urine Bilirubin Urine Urobilinogen Ur Leukocyte Esterase Urine RBC Urine WBC Ur Epithelial Cells Urine Crystals Urine Bacteria Urine Casts Urine Mucus Ur Culture Indicated? Urine Glucose COVID-19 Source Nasal/nares 12/24/20 02:05 WBC RBC Hgb Hct MCV MCH MCHC RDW Plt Count MPV Immature Gran % Neutrophils % Lymphocytes % Monocytes % Eosinophils % Basophils % Nucleated RBC % Absolute Neutrophils Absolute Lymphocytes Absolute Monocytes Absolute Eosinophils Absolute Basophils Sodium Potassium Chloride Carbon Dioxide Anion Gap BUN Creatinine Estimated GFR/1.73 m2 Glucose Calcium Total Bilirubin AST ALT Alkaline Phosphatase Total Protein Albumin Urine Color Yellow Urine Clarity Sl cloudy Urine pH 6.0 Ur Specific [place] 1.020 Urine Protein Negative Urine Ketones Negative Urine Blood Negative Urine Nitrite Positive H Urine Bilirubin Negative Urine Urobilinogen 0.2 Ur Leukocyte Esterase Negative Urine RBC 0-2 Urine WBC 10-20 H Ur Epithelial Cells Few Urine Crystals Negative Urine Bacteria Many Urine Casts Negative Urine Mucus Negative Ur Culture Indicated? Yes Urine Glucose 500 H COVID-19 Source Last Vital Signs Temp 36.3 C L 12/24/20 01:25 Pulse 76 12/24/20 01:25 Resp 19 12/24/20 01:25 BP 109/66 12/24/20 01:25 Pulse Ox 96 12/24/20 01:25 COVID-19 Screening Have you, or household traveled for leisure in last 14 days?: No Had IN PERSON contact w/suspected or confirmed C-19 person: No
[2020-12-24 07:47] VITALS: BP 111/67; PULSE 82; RESP 18; TEMP 36.4; O2SAT 92
[2020-12-24] MEDS: metFORMIN 500 MG TAB 1000 MG PO (08:33)
[2020-12-24] MEDS: Atorvastatin 40 MG TAB PO (08:33)
[2020-12-24] MEDS: Magnesium Oxide 400 MG TAB PO (08:33)
[2020-12-24] MEDS: Citalopram 20 MG TAB 40 MG PO (08:34)
[2020-12-24] MEDS: Gabapentin 400 MG CAP PO (08:34)
[2020-12-24] MEDS: Multivitamin w/Minerals TAB 1 TAB PO (08:34)
[2020-12-24] MEDS: Lisinopril 5 MG TAB PO (08:34)
[2020-12-24] MEDS: Acetaminophen 325 MG TAB 650 MG PO (08:34)
[2020-12-24] MEDS: Aspirin E.C. 81 MG TABEC PO (08:34)
[2020-12-24] MEDS: Pantoprazole 40 MG TABCR PO (08:34)
[2020-12-24] MEDS: buPROPion-XL 150 MG TABCR 300 MG PO (08:34)
[2020-12-24] MEDS: Baclofen 10 MG TAB PO (08:34)
[2020-12-24] MEDS: Apixaban 2.5 MG TAB PO (08:34)
[2020-12-24] MEDS: Isosorbide Mononitrate 60 MG TABCR PO (08:34)
[2020-12-24] MEDS: Ascorbic Acid 500 MG TAB PO (08:34)
[2020-12-24] MEDS: Normal Saline 1,000 ML 125 ML IV (08:46)
[2020-12-24] MEDS: Insulin Glargine 300 UNITS/3 ML PEN 75 UNITS SC (08:47)
--- NOTE | 2020-12-24 09:21 | PGE_ITS ---
Date of Service Date of service: 12/24/20 Time of Service: 09:22 Assessment and Plan Assessment and plan (1) Hx of decompressive lumbar laminectomy: Status: Acute Assessment and plan: Patient is status post L4-S1 decompression with interbody fusion from December 09, 2020. In light of her frequent falls and worsening low back pain with left-sided radiculopathy as well as numbness down her right leg and questionable plain film study suggesting posterior displacement of the L4-L5 prosthesis posteriorly and asking for her neurosurgeon to review her films and call me back to discuss management. Patient may need transfer to [facility] for neurosurgical evaluation. Patient may need an MRI scan to assess the integrity of her spinal fusion. (2) Intractable back pain: Status: Acute Assessment and plan: Hydromorphone prn while inpatient. Patient has scheduled doses of muscle relaxers. Further management will depend upon her neurosurgeons recommendations. (3) History of pulmonary embolus (PE): Status: Acute Assessment and plan: On prophylactic apixaban chronically, continue. (4) Diabetes mellitus: Status: Chronic Assessment and plan: Well controlled on last A1c at 7.1% but this was March 2020. Will continue basal insulin and metformin and jardiance as per outpatient. SSI prn. Repeat A1c. Subjective Subjective Interval history since last seen: 55-year-old female with a history of L4-S1 decompression with interbody fusion performed at [facility] December 09, 2020 discharge from the hospital December 13, 2020. Presented emergency department last night with worsening lower back pain rating around her left buttock and down her left leg to the level of her knee. Patient states she was recovering well from her surgery until December 23 when visiting nurse removed her miguel and she reports that ever since then she has had sharp pain down her lower back into her left leg. However review of documented phone calls from [facility] reveals that she has had multiple falls. Patient's pain has been severe enough that she is unable to bear weight on her left side making it difficult for her to ambulate on her own. Patient reports she has had some urinary incontinence as well as constipation but these were present prior to her surgery. She denies any perineal numbness. Patient was evaluated last night with a plain film lumbosacral x-ray of her spine. Virtual radiology read the x-ray showing no acute fracture with evidence of interval L4-S1 spinal fusion. With intact fixation hardware. I subsequently received a phone call from Dr. Ruano, emergency room physician multimedia instructional designer this morning who received a call from the radiologist Dr. Viramontes who read the x-ray as showing L4-L5 prosthesis posterior displacement possibly within the spinal canal. Recommending CT scan of her spine. I have since verify that radiology has sent her x-rays down to [facility]'s radiology department. I have placed a call to the transfer center at [facility] requesting phone consultation and possible transfer to [facility] to the neurosurgery department. I am awaiting to hear from Dr. Alfredo Christina. I spoke with the patient about the possible need to have an MRI scan of her spine. She is indicated to me that she is claustrophobic and that if she cannot be totally put under anesthesia for the MRI she will not have it done here. Exam Narrative Exam Narrative: Obese middle-aged white female lying in bed in obvious discomfort. Exam of the left leg reveals reproducible pain with straight leg raising. Motor and gross sensory exam appear to be intact. She has normal strength with dorsiflexion and plantarflexion of her left foot and she is able to flex and extend at the knee. She is able to raise her left leg up off the bed and provide some resistance. Sensory exam to light touch over the left thigh and lower leg is present but when compared to the right leg right leg has decreased sensation compared to the left leg which she says has been this way since her surgery. DTRs were attempted in the left leg but unable to elicit reflexes. Examination of her surgical site shows the wound to be intact without induration or erythema or drainage. She has Steri-Strips over the wound. Objective Last Vital Signs Temp 36.4 C L 12/24/20 07:47 Pulse 82 12/24/20 07:47 Resp 18 12/24/20 07:47 BP 111/67 12/24/20 07:47 Pulse Ox 92 12/24/20 07:47 Laboratory Results - last 24 hr 12/24/20 12/24/20 12/24/20 00:05 00:25 00:25 WBC 12.99 H RBC 3.71 L Hgb 10.9 L Hct 34.4 L MCV 92.7 MCH 29.4 MCHC 31.7 L RDW 13.2 Plt Count 391 MPV 10.7 Immature Gran % 0.3 Neutrophils % 56.2 Lymphocytes % 33.6 Monocytes % 6.7 Eosinophils % 2.5 Basophils % 0.7 Nucleated RBC % 0 Absolute Neutrophils 7.30 H Absolute Lymphocytes 4.36 H Absolute Monocytes 0.87 H Absolute Eosinophils 0.32 Absolute Basophils 0.09 Sodium 142 Potassium 4.0 Chloride 104 Carbon Dioxide 29.5 Anion Gap 8.5 BUN 15 Creatinine 1.0 Estimated GFR/1.73 m2 57.56 Glucose 128 H Calcium 9.0 Total Bilirubin 0.2 AST 12 L ALT 27 Alkaline Phosphatase 115 Total Protein 6.7 Albumin 3.2 L Urine Color Urine Clarity Urine pH Ur Specific [place] Urine Protein Urine Ketones Urine Blood Urine Nitrite Urine Bilirubin Urine Urobilinogen Ur Leukocyte Esterase Urine RBC Urine WBC Ur Epithelial Cells Urine Crystals Urine Bacteria Urine Casts Urine Mucus Ur Culture Indicated? Urine Glucose COVID-19 Source Nasal/nares 12/24/20 02:05 WBC RBC Hgb Hct MCV MCH MCHC RDW Plt Count MPV Immature Gran % Neutrophils % Lymphocytes % Monocytes % Eosinophils % Basophils % Nucleated RBC % Absolute Neutrophils Absolute Lymphocytes Absolute Monocytes Absolute Eosinophils Absolute Basophils Sodium Potassium Chloride Carbon Dioxide Anion Gap BUN Creatinine Estimated GFR/1.73 m2 Glucose Calcium Total Bilirubin AST ALT Alkaline Phosphatase Total Protein Albumin Urine Color Yellow Urine Clarity Sl cloudy Urine pH 6.0 Ur Specific [place] 1.020 Urine Protein Negative Urine Ketones Negative Urine Blood Negative Urine Nitrite Positive H Urine Bilirubin Negative Urine Urobilinogen 0.2 Ur Leukocyte Esterase Negative Urine RBC 0-2 Urine WBC 10-20 H Ur Epithelial Cells Few Urine Crystals Negative Urine Bacteria Many Urine Casts Negative Urine Mucus Negative Ur Culture Indicated? Yes Urine Glucose 500 H COVID-19 Source
[2020-12-24 10:06] LABS: COVID-19 PCR Negative (Negative)
[2020-12-24 10:18] LABS: Hemoglobin A1C 8.2 % (<5.7)
--- NOTE | 2020-12-24 11:17 | W.PM.DS.N ---
Date of service: 12/24/20 Time of Service: 11:18 DS: Diagnosis Discharge Diagnosis (1) Hx of decompressive lumbar laminectomy: Status: Chronic (2) Intractable back pain: Status: Acute (3) History of pulmonary embolus (PE): Status: Chronic (4) Diabetes mellitus: Status: Chronic Discharge Plan Disposition Patient Disposition: [facility] Condition: Stable Discharge Details Reason For Visit: INTRACTABLE PAIN, LEFT LUMBAR RADICULOPATHY Admit Date/Time: 12/23/20 23:30 Admit Provider: Justen Mendez Attending Provider: Justen Mendez Primary Care Provider: [facility] Course Hospital Course: 65-year-old female with past medical history of diabetes mellitus, COPD, NARA requiring CPAP, hypertension, CVA, pulmonary embolism treated with long-term anticoagulation with Eliquis, GERD who has a history of severe degenerative disc disease of her lumbosacral spine. She has had previous left L5-S1, MIS discectomy June 13, 2018, revision left L5-S1 decompression 02/27/2019, and C3-4 ACDF 01/03/2020 who recently was hospitalized at [facility] from December 09, 2020 through December 13, 2020 and underwent an L4-S1 decompression with interbody fusion. Incision was closed with miguel. She was discharged to home and has been receiving home physical therapy and visiting nurse. At the time of discharge she was ambulating with a rolling walker. Since being discharged from [facility] on December 13, 2020 she has had at least a couple of falls. Her last fall was a couple days ago while putting clothes away and ambulating with a walker. Prior to that she had a fall 4 days ago while going to the bathroom and landed hard on her back. In addition to having left leg pain she is also had numbness down her right leg. Yesterday miguel were removed by visiting nurse when patient complained about severe left-sided lower back pain rating down to her knee. Patient was seen in the emergency department last night by the ER staff who did examination and routine labs along with plain film x-ray of her lumbosacral spine. Originally a CT scan was ordered but then canceled. Patient was treated with IV Dilaudid which gave her some comfort. She was admitted to the hospital service last night for pain control. As near as I can tell from the medical records both here at [facility] and [facility] neurosurgery was not contacted last night. X-ray was read by virtual radiologist last night as showing no acute fracture with interval L4-S1 spinal fusion with intact fixation hardware. Interbody spacing devices at L4-L5 and L5-S1 placed in line with the pedicles at L4-L5 and completely between the vertebral bodies at L5-S1. This morning I received a phone call from Dr. Dharmesh Ruano, emergency room physician, notifying me that the radiologist Dr. Dharmesh Viramontes reread the x-rays this morning and is now reporting displacement posteriorly of the L4-L5 prosthesis possibly lying in the spinal canal. Additional CT imaging was recommended. I placed a call to [facility] upon receiving news of the abnormal x-ray after I evaluated the patient. I subsequently received a call from Dr. Escobedo, neurosurgical fellow who read her x-ray and compared it to their x-rays and he agrees that there is posterior displacement of her intervertebral prosthesis and recommend I keep the patient n.p.o. and start IV fluids and arrange transfer to [facility] to the emergency department under the care of Dr. Constantin Miller, for neurosurgical consultation and evaluation in the emergency department along with further imaging including CT scan of her lumbosacral spine and MRI of her lumbosacral spine. I informed Dr. Escobedo that the patient had already had breakfast and had her asirin 81 mg and apixaban 2.5 mg. I had a discussion with the patient regarding her concerns over posterior displacement of her intervertebral body prosthesis and potential spinal cord compression. I explained her that she needs to go to [facility] for emergent evaluation by neurosurgical team and further imaging of her lumbosacral spine. She is agreeable to transfer to [facility]. The patient notified her son that she is going to [facility]. Per my exam I did not detect any noticeable weakness in her hip flexion or extension either on the right or the left. She has diminished sensation down the right leg to her right knee but intact sensation on the left side. I could not elicit DTRs. She had normal dorsiflexion and plantarflexion of both feet. In the presence of the patient's nurse I did a rectal exam looking for an anal wink which was intact. Her reported urinary incontinence preceded her most recent back surgery and she has had no bowel incontinence but she does have constipation. At present I do not feel that she has cauda equina but nevertheless she needs emergent imaging of her lumbosacral spine and reevaluation by her neurosurgeon. Home Meds and New Rx's Prescriptions: No Action atorvastatin 40 mg Tablet 40 mg PO DAILY RF: 0 acetaminophen 325 mg Tablet 650 mg PO Q6H PRNRF: 0 citalopram 40 mg Tablet 40 mg PO DAILY RF: 0 naltrexone 50 mg Tablet 100 mg PO DAILY RF: 0 aspirin [Aspirin Low Dose] 81 mg Tablet,Delayed Release (Dr/Ec) 81 mg PO DAILY RF: 0 isosorbide mononitrate 60 mg Tablet Extended Release 24 Hr 60 mg PO DAILY RF: 0 ascorbic acid (vitamin C) [Vitamin C] 500 mg Tablet 500 mg PO DAILY RF: 0 pantoprazole 40 mg Tablet,Delayed Release (Dr/Ec) 40 mg PO DAILY RF: 0 metformin 1,000 mg Tablet 1,000 mg PO BID RF: 0 gabapentin 300 mg Capsule 400 mg PO TID RF: 0 diclofenac sodium 75 mg Tablet,Delayed Release (Dr/Ec) 75 mg PO BID RF: 0 magnesium 250 mg Tablet 250 mg PO DAILY RF: 0 lisinopril 5 mg Tablet 5 mg PO DAILY RF: 0 multivitamin with minerals Tablet 1 tab PO DAILY RF: 0 polyethylene glycol 3350 17 gram/dose Powder 17 g PO DAILY PRNRF: 0 Calcium 600 + D(3) 600 mg calcium- 200 unit Capsule 1 cap PO DAILY RF: 0 Lantus Solostar U-100 Insulin 100 unit/mL (3 mL) Insulin Pen 75 unit SUBCUT DAILY RF: 0 Eliquis 2.5 mg Tablet 2.5 mg PO BID RF: 0 cyclobenzaprine 10 mg tablet 10 mg PO PRN PRN (Reason: Pain) RF: 0 tramadol 50 mg tablet 50 mg PO PRN PRN (Reason: Pain) RF: 0 baclofen 10 mg tablet 10 mg PO TID RF: 0 prazosin 2 mg Capsule 2 mg PO HS RF: 0 bupropion HCl 300 mg Tablet Extended Release 24 Hr 300 mg PO QAM RF: 0 Jardiance 25 mg tablet 25 mg PO DAILY RF: 0 Discharge Instructions Referrals: Constantin Miller MD [ NON-[facility] STAFF PHYSICIAN] - (patient to go to ED at [facility] for neurosurgical evaluation and MRI spine) Activity:: bedrest Diet:: npo DS: Summary Time Spent with Patient providing and/or coordinating discharge services: Greater than 30 minutes Status at Discharge Functional status at discharge: bed bound Overall status at discharge: patient is not back to baseline Mental Status: mental status grossly normal Speech and Movement: speech and movement normal Mood: anxious mood Affect: anxious affect Exam Psych Mental Status: mental status grossly normal Speech and Movement: speech and movement normal Mood: anxious mood Affect: anxious affect DS: Data Vitals/I&O Vitals and I&O: Vital Signs Temperature 36.4 C L 12/24/20 07:47 Temperature Source Tympanic 12/24/20 07:47 Pulse 82 12/24/20 07:47 Pulse Rhythm Regular 12/24/20 07:31 Respiratory Rate 18 12/24/20 07:47 Respiratory Effort Non-Labored 12/24/20 07:31 Respiratory Depth Normal 12/24/20 07:31 Respiratory Pattern Normal 12/24/20 07:31 Blood Pressure 111/67 12/24/20 07:47 Blood Pressure Mean 60 12/23/20 20:03 Pulse Oximetry 92 12/24/20 07:47 Oxygen Delivery Method Room Air 12/24/20 07:47 Oxygen Flow Rate 0 12/24/20 07:47 Pain Level 7 12/24/20 11:08 Comment 12/24/20 01:25 Intake & Output 12/23/20 12/23/20 12/24/20 11:59 23:59 11:59 Intake Total 1718.333 / 1718.333 Output Total 2099 / 2100 Balance -381.667 / -381.667 Weight 95 kg 93.1 kg Intake: IV 548.333 / 548.333 Oral 1170 / 1170 Output: Urine 2100 / 2100 Other: Urine Color Pale Yellow Urine Appearance Clear Urine Odor Normal Voiding Methods Bedside Commode Data Completed and Pending Labs on day of discharge: Labs from last 24 hours 12/24/20 12/24/20 12/24/20 02:05 00:25 00:25 WBC 12.99 H RBC 3.71 L Hgb 10.9 L Hct 34.4 L MCV 92.7 MCH 29.4 MCHC 31.7 L RDW 13.2 Plt Count 391 MPV 10.7 Immature Gran % 0.3 Neutrophils % 56.2 Lymphocytes % 33.6 Monocytes % 6.7 Eosinophils % 2.5 Basophils % 0.7 Nucleated RBC % 0 Absolute Neutrophils 7.30 H Absolute Lymphocytes 4.36 H Absolute Monocytes 0.87 H Absolute Eosinophils 0.32 Absolute Basophils 0.09 Sodium Potassium Chloride Carbon Dioxide Anion Gap BUN Creatinine Estimated GFR/1.73 m2 Glucose Hemoglobin A1c 8.2 H Calcium Total Bilirubin AST ALT Alkaline Phosphatase Total Protein Albumin Urine Color Yellow Urine Clarity Sl cloudy Urine pH 6.0 Ur Specific [place] 1.020 Urine Protein Negative Urine Ketones Negative Urine Blood Negative Urine Nitrite Positive H Urine Bilirubin Negative Urine Urobilinogen 0.2 Ur Leukocyte Esterase Negative Urine RBC 0-2 Urine WBC 10-20 H Ur Epithelial Cells Few Urine Crystals Negative Urine Bacteria Many Urine Casts Negative Urine Mucus Negative Ur Culture Indicated? Yes Urine Glucose 500 H COVID-19 Source SARS-CoV-2 (PCR) 12/24/20 12/24/20 00:25 00:05 WBC RBC Hgb Hct MCV MCH MCHC RDW Plt Count MPV Immature Gran % Neutrophils % Lymphocytes % Monocytes % Eosinophils % Basophils % Nucleated RBC % Absolute Neutrophils Absolute Lymphocytes Absolute Monocytes Absolute Eosinophils Absolute Basophils Sodium 142 Potassium 4.0 Chloride 104 Carbon Dioxide 29.5 Anion Gap 8.5 BUN 15 Creatinine 1.0 Estimated GFR/1.73 m2 57.56 Glucose 128 H Hemoglobin A1c Calcium 9.0 Total Bilirubin 0.2 AST 12 L ALT 27 Alkaline Phosphatase 115 Total Protein 6.7 Albumin 3.2 L Urine Color Urine Clarity Urine pH Ur Specific [place] Urine Protein Urine Ketones Urine Blood Urine Nitrite Urine Bilirubin Urine Urobilinogen Ur Leukocyte Esterase Urine RBC Urine WBC Ur Epithelial Cells Urine Crystals Urine Bacteria Urine Casts Urine Mucus Ur Culture Indicated? Urine Glucose COVID-19 Source Nasal/nares SARS-CoV-2 (PCR) Negative 12/24/20 02:05 Urine - Reflex from Urine Culture - Pending Preliminary micro results at discharge 12/24/20 02:05 Urine Culture - Pending Urine - Reflex from [facility] hospital Medical History (Updated 12/24/20 @ 11:18 by Yash Jason) BMI 35.0-35.9,adult COPD (chronic obstructive pulmonary disease) Diabetes mellitus DVT (deep venous thrombosis) HTN (hypertension) Hyperlipemia Obstructive sleep apnea Pulmonary embolism Surgical History (Updated 12/24/20 @ 11:18 by Yash Jason) H/O removal of cyst History of back surgery History of carpal tunnel release Hx of cholecystectomy Hx of decompressive lumbar laminectomy Social History Smoking/Tobacco Use Status: Former Tobacco Use Quit Date: 09/24/09 Smoking risk assessment performed?: Yes Alcohol Intake: never Substance use type: does not use Do you feel safe at home: Yes Do you feel safe in your relationship?: Yes
--- NOTE | 2020-12-24 11:23 | PT.INNT ---
Date of service: 12/24/20 Time of Service: 11:23 PT Notes Visit Reasons: INTRACTABLE PAIN, LEFT LUMBAR RADICULOPATHY Patient is being prepared for transfer [place] [facility] [place] surgical consult and medical intervention when PT came in for an initial evaluation attempt. No skilled PT intervention provided for this admission. Thank you for the opportunity to participate in the care of this patient. Mary Meza PT, DPT, CLT [facility] [place], [place]
--- NOTE | 2020-12-24 13:27 | CMPROGNOTE_ITS ---
- If Service Date Differs Date of service: 12/24/20 Time of Service: 13:27 Care Management Progress Note S/O: Jany was lying in bed when CM met with her. She reported that her pain has been well managed while at [facility]. During this conversation, the MD arrived and reported that she has been accepted for transfer to [facility] and will be leaving within the hour. She asked to call her son to update him. CM brought her the phone, at her request. She was agreeable to transfer. A: Jany is a 55 year old female admitted to [facility] on 12/23/20 with Intractable pain, left lumbar radiculopathy. P: Jany was transferred to [facility] today, per MD report. She was transported via [facility], coordinated by RN supervisor pole yard. She called her son to update him on the plan. She is agreeable to transport.
--- NOTE | 2020-12-24 13:27 | PDOC.CMPRO ---
- If Service Date Differs Date of service: 12/24/20 Time of Service: 13:27 Care Management Progress Note S/O: Jany was lying in bed when CM met with her. She reported that her pain has been well managed while at [facility]. During this conversation, the MD arrived and reported that she has been accepted for [place] [facility] and will be leaving within the hour. She asked to call her son to update him. CM brought her the phone, at her request. She was agreeable to transfer. A: Jany is a 55 year old female admitted to [facility] on 12/23/20 with Intractable pain, left lumbar radiculopathy. P: Jany was transferred [place] [facility] [place], per MD report. She was transported via [facility], coordinated by RN supervisor sewing department. She called her son to update him on the plan. She is agreeable to transport.
--- NOTE | 2020-12-24 14:06 | CHAPLAIN ---
I visited with Jany this morning, after she learned she was being transferred to [facility]. She was telling her son over the phone about her transfer when I visited. Jany said she may have surgery at [facility] and this will be her fifth surgery since 1017. She was appreciative of the prayer shawl I gave her.
== END 2020-12-24 11:46 | disposition short-term general hospital (02) | DRG 921 ==
LOC: ER 23:41 → MS 12-24 00:28
PROVIDERS: Admitting Provider Family Medicine; Emergency Provider Registered Nurse Emergency; PCP Nurse Practitioner Family; Visit Provider Family Medicine
DX: T85.628A Displacement of other specified internal prosthetic devices, implants and grafts, initial encounter (principal); T84.84XA Pain due to internal orthopedic prosthetic devices, implants and grafts, initial encounter; T84.89XA Other specified complication of internal orthopedic prosthetic devices, implants and grafts, initial encounter; Z96.698 Presence of other orthopedic joint implants; M54.5 Low back pain; E11.9 Type 2 diabetes mellitus without complications; J44.9 Chronic obstructive pulmonary disease, unspecified; G47.33 Obstructive sleep apnea (adult) (pediatric); Z86.73 Personal history of transient ischemic attack (TIA), and cerebral infarction without residual deficits; Z86.711 Personal history of pulmonary embolism; I10 Essential (primary) hypertension; Z79.01 Long term (current) use of anticoagulants; K21.9 Gastro-esophageal reflux disease without esophagitis; Z98.1 Arthrodesis status; K59.00 Constipation, unspecified
CPT/HCPCS: 36415; 80053; 87077; 87635; 96361; 96374; 96376; 99219; 99233; 99239; 99285; 72110; 81003; 81015; 83036; 85025; 87086; 87186; J2270

== ENCOUNTER 2021-05-24 17:43 | Outpatient (REF) | payer MEDICARE, MEDICAID, SELFPAY | END 2021-05-24 17:44 | disposition home or self-care (01) | LOC: NCHCN 17:43 | PROVIDERS: PCP Nurse Practitioner Family; Visit Provider Nurse Practitioner Family | DX: R32 Unspecified urinary incontinence (principal) | CPT/HCPCS: 87086 ==

== ENCOUNTER 2022-01-06 00:36 | Outpatient (CLI) | payer MEDICARE, MEDICAID, SELFPAY ==
--- NOTE | 2022-01-06 | DI.MAMMO_ITS ---
Exam(s) MG MAMMO SCREENING 60 MIN DUR EXAM: MG MAMMO SCREENING 60 MIN DUR CLINICAL HISTORY: SCREENING, Z12.31 TECHNIQUE: Bilateral full field digital CC and MLO mammographic images were obtained with 3D tomosyn thesis and utilizing computer aided detection (CAD). COMPARISON: Available for comparison. FINDINGS: Masses/Architectural Distortion: There are multiple well-circumscribed nodules in both breasts again seen. No suspicious masses are present. No areas of architectural distortion are seen. Microcalcifications: No suspicious pleomorphic-type are seen. Skin Thickening/Nipple Retraction: None. IMPRESSION: 1. No significant interval change with no specific features of malignancy noted. 2. Unless there is more urgent need, screening mammography is recommended, as per [employer] guidelines. BI-RADS Category 2 - Benign Findings Breast Density - Category B - Scattered areas of fibroglandular density Breast density category C or D implies that the patient has dense breast tissue. Dense breast tissue is very common and is not abnormal but dense breast tissue can make it harder to find cancer on a ma mmogram. Also, dense breast tissue may increase their breast cancer risk. This information about the result of the mammogram report was provided to the patient to raise their awareness. Use this report when you speak with the patient about their risks for breast cancer, which includes their family hist ory. At that time, you may recommend for more screening tests (Ultrasound or MRI) as they might be us eful based on their risk. A negative radiographic report should not delay biopsy if a dominant or clinically suspicious mass is present. Up to ten percent of cancers are not identified on mammography. A negative report may reinforce clinical impression. Adenosis and dense breasts may obscure an underlying neoplasm. False positive reports average 6 to 10%. Patient will receive a letter notifying them of these results.
[2022-01-06 20:42] LABS: HCT 40.1 % (36.0-46.0); HGB 12.3 g/dL (11.2-15.7); MCH 26.6 pg (27.0-33.0); MCHC 30.7 % (32.0-36.0); MCV 86.8 fL (80-95); MPV 12.4 fL (8.0-11.0); Platelet Count 359 10^3/uL (130-400); RBC 4.62 10^6/uL (3.93-5.22); RDW-SD 44.6 fL; WBC 11.58 10^3/uL (4.4-10.8)
[2022-01-06 20:52] LABS: ALT 38 U/L (14-59); AST 17 U/L (15-37); Albumin 4.1 g/dL (3.4-5.0); Alkaline Phosphatase 90 U/L (46-116); Anion Gap 9.1 mmol/L (3-11); BUN 18 mg/dL (7-18); Bilirubin, Total 0.3 mg/dL (0.2-1.0); CO2 27.9 mmol/L (21.0-32.0); CREATININE 0.9 mg/dL (0.55-1.02); Calcium 9.6 mg/dL (8.5-10.1); Chloride 102 mmol/L (98-107); Glucose 190 mg/dL (74-106); Potassium 4.9 mmol/L (3.5-5.1); Sodium 139 mmol/L (136-145); Total Protein 7.1 g/dL (6.4-8.2)
== END 2022-01-06 00:56 ==
PROVIDERS: PCP Nurse Practitioner Family; Visit Provider Family Medicine
DX: Z12.31 Encounter for screening mammogram for malignant neoplasm of breast (principal); E11.9 Type 2 diabetes mellitus without complications
CPT/HCPCS: 77063; 77067; 80053; 85027

== ENCOUNTER → 2022-01-20 01:04 | Outpatient (CLI) | payer MEDICARE, MEDICAID, SELFPAY ==
--- NOTE | 2022-01-20 | DI.RAD_ITS ---
Exam(s) XR SHOULDER RT COMPLETE 2+V EXAM: XR SHOULDER RT COMPLETE 2+V CLINICAL HISTORY: Shoulder Pain - M25.519. TECHNIQUE: 2D digital imaging was performed. Five views. COMPARISON: CR XR SHOULDER LT COMPLETE 2+V from 01/20/2022 FINDINGS: BONES: No acute fracture is present. No bony destructive lesion is seen. Spurring at greater tuberos ity and tip of the acromion. JOINTS: No dislocation present. Mild spurring AC joint. Mild spurring at glenoid. SOFT TISSUE: Normal. IMPRESSION: Mild degenerative changes. DATA REPOSITORY: RADIATION DOSE DELIVERED:
--- NOTE | 2022-01-20 | DI.RAD_ITS ---
Exam(s) XR ELBOW LT COMPLETE EXAM: XR ELBOW LT COMPLETE CLINICAL HISTORY: Elbow Pain - M25.529. TECHNIQUE: 2D digital imaging was performed. Three views. COMPARISON: CR XR ELBOW RT COMPLETE from 01/20/2022 FINDINGS: BONES: No acute fracture is present. No bony destructive lesion is seen. Spurring at the coronoid pro cess of the ulna. JOINTS: The elbow is normally aligned. No joint effusion is seen. SOFT TISSUE: Normal. No joint space calcifications. IMPRESSION: Degenerative changes at the ulna. DATA REPOSITORY: RADIATION DOSE DELIVERED:
--- NOTE | 2022-01-20 11:10 | DI.RAD_ITS ---
Exam(s) XR ELBOW RT COMPLETE EXAM: XR ELBOW RT COMPLETE CLINICAL HISTORY: Elbow Pain - M25.529. TECHNIQUE: 2D digital imaging was performed. Three views. COMPARISON: No exams were available for comparison FINDINGS: BONES: No acute fracture is present. No bony destructive lesion is seen. JOINTS: The elbow is normally aligned. No joint effusion is seen. Joint spaces well maintained. Spu rring at margin of the coronoid process of the ulna. SOFT TISSUE: Normal. IMPRESSION: Mild degenerative changes at the ulna. DATA REPOSITORY: RADIATION DOSE DELIVERED:
--- NOTE | 2022-01-20 11:20 | DI.RAD_ITS ---
Exam(s) XR SHOULDER LT COMPLETE 2+V EXAM: XR SHOULDER LT COMPLETE 2+V CLINICAL HISTORY: Shoulder Pain - M25.519. TECHNIQUE: 2D digital imaging was performed. Five views. COMPARISON: CR XR CHEST 2V PA LATERAL from 08/20/2020 FINDINGS: BONES: No acute fracture is present. No bony destructive lesion is seen. Enchondroma proximal humeru s. No abnormal expansile or destructive features. Roughly stable appearance when compared with prior chest x-ray. JOINTS: No dislocation present. Mild spurring AC joint and glenoid. Glenohumeral joint space is wel l maintained. SOFT TISSUE: Normal. IMPRESSION: Mild degenerative changes. Enchondroma proximal humerus. DATA REPOSITORY: RADIATION DOSE DELIVERED:
== END ==
PROVIDERS: PCP Nurse Practitioner Family; Visit Provider Nurse Practitioner Family
DX: M25.511 Pain in right shoulder (principal); M25.512 Pain in left shoulder; M25.521 Pain in right elbow; M25.522 Pain in left elbow; D16.02 Benign neoplasm of scapula and long bones of left upper limb; M75.82 Other shoulder lesions, left shoulder; M77.8 Other enthesopathies, not elsewhere classified; M75.81 Other shoulder lesions, right shoulder
CPT/HCPCS: 73030; 73080